=== PATIENT | female | born 1945 | race Caucasian/White ===

== ENCOUNTER 2021-02-11 13:46 | Observation (INO) | payer MEDICARE ==
[~2021-02-11] VITALS: Ht 165.1 cm; Wt 2.4 kg
[2021-02-11 14:23] LABS: HEMOGLOBIN 13.3 gm/dl (12.3-15.3); RED BLOOD COUNT 4.64 M/UL (4.00-5.10); WHITE BLOOD COUNT 11.7 K/UL (4.5-11.0)
[2021-02-12 04:56] LABS: RED BLOOD COUNT 4.2 M/UL (4.00-5.10); WHITE BLOOD COUNT 10.8 K/UL (4.5-11.0)
[2021-02-12 05:24] LABS: BUN/CREATININE RATIO 37 (0-10)
[2021-02-12] MEDS ORDERED: GABAPENTIN100 MG PO (11:06)
[2021-02-12] MEDS ORDERED: AMLODIPINE BESY10 MG PO (11:06)
[2021-02-12] MEDS ORDERED: DICLOFENAC SODI25 MG PO (11:07)
[2021-02-12] MEDS ORDERED: GLIPIZIDE XL2.5 MG PO (11:07)
[2021-02-12] MEDS ORDERED: METFORMIN HCL1000 MG PO (11:07)
[2021-02-13 06:14] LABS: HEMOGLOBIN 11.7 gm/dl (12.3-15.3); RED BLOOD COUNT 4.13 M/UL (4.00-5.10)
[2021-02-13 06:29] LABS: BUN/CREATININE RATIO 24 (0-10)
[2021-02-13] MEDS ORDERED: ASPIRIN EC81 MG PO (10:19)
[2021-02-13] MEDS ORDERED: ATORVASTATIN CA10 MG PO (10:19)
[2021-02-13] MEDS ORDERED: LEVOFLOXACIN500 MG PO (10:19)
== END 2021-02-13 11:40 | disposition home or self-care (01) ==
LOC: ER1 13:46 → CDU 17:00 → PROG CARE 17:00 → CDU 17:00 → PROG CARE 02-12 05:12 → MED SURG 4 02-12 20:17
PROVIDERS: Physician Assistant; ADMIT Internal Medicine
DX: I63.81 Other cerebral infarction due to occlusion or stenosis of small artery (principal); R53.1 Weakness; N39.0 Urinary tract infection, site not specified; I10 Essential (primary) hypertension; E11.9 Type 2 diabetes mellitus without complications; Z20.822 Contact with and (suspected) exposure to COVID-19; Z90.49 Acquired absence of other specified parts of digestive tract; Z87.440 Personal history of urinary (tract) infections
CPT/HCPCS: ECHO; 36415; 70450; 70551; 71045; 80048; 80053; 81001; 82550; 82553; 82962; 83036; 83540; 83550; 83605; 83735; 83874; 84439; 84443; 84484; 85025; 85027; 85652; 86140; 87040; 87086; 93005; 93306; 93880; 97161; 97165; 99285; G0378; J0696; J1650; U0002

== ENCOUNTER → 2021-07-12 | Outpatient (CLI) | payer MEDICARE ==
[~2021-07-12] MED LIST: AMLODIPINE BESY10 MG PO; ASPIRIN EC81 MG PO; ATORVASTATIN CA10 MG PO; DICLOFENAC SODI25 MG PO; GABAPENTIN100 MG PO; GLIPIZIDE XL2.5 MG PO; LEVOFLOXACIN500 MG PO; METFORMIN HCL1000 MG PO
== END ==
LOC: KOH-I 14:03
DX: M79.672 Pain in left foot (principal); M79.671 Pain in right foot; M19.072 Primary osteoarthritis, left ankle and foot; M19.071 Primary osteoarthritis, right ankle and foot
CPT/HCPCS: 73630